=== PATIENT | male | born 1935 | race Caucasian/White ===

== ENCOUNTER 2022-01-31 06:31 | Day surgery (SDC) | payer MEDICARE, SELFPAY ==
--- NOTE | 2022-01-30 09:40 | HO.ANESPROP2 ---
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 Chronic opioids PMFSH Past Medical History Medical History Autonomic dysfunction Elevated cholesterol HTN (hypertension) Surgical History Surgical History History of ankle surgery History of back surgery History of cholecystectomy History of ERCP Hx of colonoscopy Hx of shoulder surgery Social History Social History Patient Tobacco Use Status: Former Tobacco user Are you DNR?: No Advance Directives: No Advance Directives Information Provided: Yes Recently lost weight without trying: No Nutrition Risks: No Nutritional Risk Meds Allergies Allergy/AdvReac Type Severity Reaction Status Date / Time No Known Allergies Allergy Verified 01/31/22 06:48 [No Known Allergies*] Home Medications Medication Instructions Recorded Confirmed Last Taken Type fludrocortisone 0.1 mg tablet 1 tab PO DAILY 01/30/22 01/30/22 01/30/22 History midodrine 5 mg tablet 1 tab PO BID 01/30/22 01/31/22 01/30/22 History omeprazole 40 mg capsule,delayed 1 cap PO DAILY 01/30/22 01/30/22 01/30/22 History release oxycodone 10 mg tablet 1 tab PO QID PRN pain 01/30/22 01/30/22 01/30/22 History pravastatin 40 mg tablet 1 tab PO DAILY 01/30/22 01/30/22 01/30/22 History propranolol 10 mg tablet 1 tab PO BID 01/30/22 01/30/22 01/30/22 History Exam Exam Date and Time: January 30, 2022 0940 Assessment and Plan Assessment Anesthesia Assessment: Chart Reviewed Documented by User: Venessa Henning MD 01/31/22 08:20 [facility] Past Medical History Medical History Autonomic dysfunction Elevated cholesterol HTN (hypertension) Family History Family history of problems with anesthesia: No Surgical History Surgical History History of ankle surgery History of back surgery History of cholecystectomy History of ERCP Hx of colonoscopy Hx of shoulder surgery History of Problems with Anesthesia: No Social History Social History Patient Tobacco Use Status: Former Tobacco user Are you DNR?: No Advance Directives: No Advance Directives Information Provided: Yes Recently lost weight without trying: No Nutrition Risks: No Nutritional Risk Meds Allergies Allergy/AdvReac Type Severity Reaction Status Date / Time No Known Allergies Allergy Verified 01/31/22 06:48 [No Known Allergies*] Home Medications Medication Instructions Recorded Confirmed Last Taken Type fludrocortisone 0.1 mg tablet 1 tab PO DAILY 01/30/22 01/30/22 01/30/22 History midodrine 5 mg tablet 1 tab PO BID 01/30/22 01/31/22 01/30/22 History omeprazole 40 mg capsule,delayed 1 cap PO DAILY 01/30/22 01/30/22 01/30/22 History release oxycodone 10 mg tablet 1 tab PO QID PRN pain 01/30/22 01/30/22 01/30/22 History pravastatin 40 mg tablet 1 tab PO DAILY 01/30/22 01/30/22 01/30/22 History propranolol 10 mg tablet 1 tab PO BID 01/30/22 01/30/22 01/30/22 History Exam Height,Weight and Vital Signs: Height 5 ft 8 in Weight 90.718 kg Vital Signs Temp Resp BP Pulse Ox O2 Del Method 01/31/22 06:34 98.3 F 16 111/70 97 Room Air Airway Mallampati Class: II TM Dist: >3cm Neck ROM: Full Denture: Upper Loose/Missing/Broken Teeth: Yes (No teeth bottom ) Heart: RRR Lungs: CTAB Assessment and Plan Assessment Anesthesia Assessment: Anesthesia Plan Discussed Final Anesthetic Review Family History of Problems with Anesthesia: No History of Problems with Anesthesia: No NPO: Yes ASA Class: III Final Preanesthetic Review: No Changes in Pt Med Stat, Meds/Allgs Chart Reviewed, Consent Obtained/Reviewed and Anes Risks/Benef Reviewed Patient Risk: Intermediate Procedure Risk: Low Assessment/Block/Sedation in SS: Assess/Block/Sedation-SS Anesthetic Plan Anesthetic Plan: MAC: Disposition: Standard PACU
[2022-01-31 06:17] VITALS: BMI 30.4
[2022-01-31 06:34] VITALS: BP 111/70; RESP 16; TEMP 36.8; O2SAT 97
[2022-01-31] MEDS: Lactated Ringers 1,000 ML 100 ML IVCONT (07:04)
[2022-01-31 08:16] VITALS: BP 129/74; PULSE 60; RESP 17; TEMP 37.1; O2SAT 98
--- NOTE | 2022-01-31 08:22 | P.BOP_ITS ---
Brief Operative Note Date of Service: 01/31/22 Pre-op diagnosis: Dysphagia Post-op diagnosis: other (Hiatal hernia, Gastric AVM, Chronic gastritis) Procedure: EGD with Balloon dilation 15 to 16.5 to 18mm of EG Junction, and biopsies Surgeon: Galen Chapin Anesthesia: MAC Was an Information Systems Technician used for this Procedure?: No Estimated blood loss (mL): 2.0 Pathology: other (A. Esophagus at 25cm) Condition: stable Disposition: PACU
[2022-01-31 08:31] VITALS: BP 151/96; PULSE 64; RESP 16; TEMP 37.1; O2SAT 96
--- NOTE | 2022-01-31 09:33 | OP_ITS ---
SURGEON: Galen Chapin MD INDICATIONS: The patient presents for evaluation of dysphagia. Full consent has been obtained from him for this, including risks of bleeding and perforation. PREOPERATIVE DIAGNOSIS: Dysphagia. POSTOPERATIVE DIAGNOSIS: PROCEDURE PERFORMED: Esophagogastroduodenoscopy with balloon dilation of gastroesophageal junction and biopsies. ESTIMATED BLOOD LOSS: COMPLICATIONS: ANESTHESIA: Monitored anesthesia care. ASSISTANTS: SPECIMENS: POSTOPERATIVE DIAGNOSES: Dysphagia, hiatal hernia, rule out eosinophilic esophagitis, gastric angiodysplasia, chronic gastritis. DESCRIPTION OF PROCEDURE: The patient was placed in the left lateral decubitus position. The Olympus video gastroscope was passed in the posterior oropharynx and upper esophagus under direct vision. The scope was passed slowly to the distal esophagus. The distal esophagus was somewhat tortuous and made it a little bit difficult to get to the gastroesophageal junction. The gastroesophageal junction itself was patent without any obvious stricture nor ring. There was no esophagitis nor Posada's esophagus. There was a small hiatal hernia. The scope was advanced to the pylorus, and the duodenum was cannulated to the descending portion. The duodenum including the bulb appeared normal without mass or ulceration. The scope was withdrawn back into the stomach. The gastric antrum and body had some changes of a chronic appearing gastritis with some edema and erythema but there were no erosions or ulceration. There was good peristalsis. The scope was retroflexed visualizing the proximal stomach carefully which appeared normal without any sign of mass or ulceration. The scope was straightened. There was a nonbleeding less than 5 mm angiodysplasia in the proximal stomach. The scope was withdrawn back into the esophagus. With insufflation of air, I was able to see the gastroesophageal junction and this was patent. I did use a [employer] balloon to dilate the gastroesophageal junction at 15 mm to 16.5 mm to 18 mm at the recommended pressure for 60 seconds each. Post dilation, there was a minimal amount of heme noted and no real disruption noted. It may have been a little bit easier to traverse the distal esophagus after the dilation. The esophagus itself, aside from the distal tortuosity, appeared normal. There was no retained liquid nor food. There was no evidence of any proximal esophageal rings. Biopsies were obtained at 25 cm. The upper esophageal sphincter appeared patent and without any sign of web nor stricture. The scope was withdrawn from the patient. He tolerated the procedure well and was returned to the recovery area in stable condition. IMPRESSION: 1. Hiatal hernia. 2. Chronic gastritis. 3. Nonbleeding proximal gastric angiodysplasia. 4. Status post balloon dilation of gastroesophageal junction. 5. Rule out eosinophilic esophagitis. PLAN: The results of the biopsies will be checked. We shall see how he does from a clinical standpoint. If things do not improve, I would recommend esophageal motility studies as the next step. He is already on omeprazole and I did advise him to continue that. He was advised not to use any aspirin or NSAIDs for at least 1 week. He will be seen in followup as well. This has been discussed with his . MD CHITO Calabrese/NEYDA / [id number] MTDD
== END 2022-01-31 09:09 | disposition home or self-care (01) ==
PROVIDERS: PCP Internal Medicine; Visit Provider Internal Medicine
PROC: (CPT 43249; principal; 2022-01-31 07:30)
DX: R13.10 Dysphagia, unspecified (principal); R93.3 Abnormal findings on diagnostic imaging of other parts of digestive tract; T17.908A Unspecified foreign body in respiratory tract, part unspecified causing other injury, initial encounter; G90.9 Disorder of the autonomic nervous system, unspecified; K29.50 Unspecified chronic gastritis without bleeding; K31.819 Angiodysplasia of stomach and duodenum without bleeding; K44.9 Diaphragmatic hernia without obstruction or gangrene; I10 Essential (primary) hypertension; E78.5 Hyperlipidemia, unspecified; Z79.899 Other long term (current) drug therapy; Z90.49 Acquired absence of other specified parts of digestive tract; Z87.891 Personal history of nicotine dependence; X58.XXXA Exposure to other specified factors, initial encounter; Y93.9 Activity, unspecified; Y92.9 Unspecified place or not applicable; Y99.8 Other external cause status
CPT/HCPCS: 43249; 43239; 88305; C1726

== ENCOUNTER 2022-07-26 09:25 | Outpatient (REF) | payer MEDICARE, SELFPAY ==
--- NOTE | ~2022-07-26 | FL_ITS ---
EXAMINATION: FL BARIUM SWALLOW CLINICAL INFORMATION: Dysphagia. COMPARISON: None available. TECHNIQUE: Barium swallow examination is performed using fluoroscopic evaluation in addition to multiple fluoroscopic spot views. The patient is imaged both upright and prone and using both thick and thin sulfate along with effervescent granules. FLUOROSCOPY TIME: 2.5 minutes. DAP: 21.385 uGy-m2 FLUOROSCOPIC IMAGES: 51 FINDINGS: Following oral administration of thick barium and barium coated turkey in upright view there is normal progression of bolus from the oral cavity into the proximal esophagus. There is corkscrew appearance of the mid and distal esophagus from presbyesophagus resulting in dilation of proximal esophagus. There is very slow propagation of bolus from the mid and distal esophagus into stomach. Patient was not placed supine. There was a single episode of laryngeal aspiration during the exam. 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 There is a single episode of laryngeal penetration. There is slow propagation of bolus in the mid and distal esophagus more so with a solid food then liquid food.
== END 2022-07-26 09:26 | disposition home or self-care (01) ==
LOC: HO.XRAY 09:25
PROVIDERS: PCP Internal Medicine; Visit Provider Internal Medicine
DX: R13.10 Dysphagia, unspecified (principal); K44.9 Diaphragmatic hernia without obstruction or gangrene
CPT/HCPCS: 74220